=== PATIENT | female | born 1990 | race Caucasian/White ===

== ENCOUNTER 2021-04-23 14:25 | Emergency (ER) | payer SELFPAY ==
[2021-04-23 14:41] VITALS: BP 144/77; PULSE 87; RESP 16; TEMP 36.8; O2SAT 98
--- NOTE | 2021-04-23 14:55 | ED.WOUNDLAC ---
HPI - Wound/Laceration General Chief Complaint: Wound/Laceration Stated Complaint: Laceration to Right Wrist, Fall Time Seen by Provider: 04/23/21 14:43 Source: patient and family Mode of arrival: Ambulatory History of Present Illness HPI narrative: Patient complains of laceration to the right wrist. Patient was getting out of car and she was holding a glass jar. Tripped and fell and a jar broke. Cutting her volar surface of her right wrist. No numbness and tingling to the hand or fingers. Still has range of motion intact at the wrist and fingers. Tetanus up-to-date. Denies any other injuries. Related Data Home Medications Medication Instructions Recorded Confirmed levothyroxine 100 mcg tablet 100 mcg PO DAILY 04/23/21 04/23/21 Previous Rx's Medication Instructions Recorded cephalexin 500 mg capsule 500 mg PO QID #16 cap 04/23/21 Allergies Allergy/AdvReac Type Severity Reaction Status Date / Time doxycycline Allergy Severe Anaphylaxis Verified 04/23/21 14:44 Review of Systems Review of Systems Narrative: GENERAL: Denies chills, fatigue, malaise, fever, sweats. HEENT: Denies sinus pain, ear pain, sore throat RESPIRATORY: Denies dyspnea, cough CARDIOVASCULAR: Denies chest pain, palpitations GASTROINTESTINAL: Denies nausea, vomiting, abdominal pain : Denies dysuria, frequency, hematuria MUSCULOSKELETAL: denies muscle or bony pain SKIN: Denies rash, skin lesions, positive laceration/injury NEUROLOGIC: Denies weakness, numbness ROS Unobtainable: All systems reviewed & are unremarkable except as noted in HPI and below Patient History Social History Smoking Status: Never smoker Smoking Status: Never smoker alcohol intake frequency: a few times a month Substance Use Type: does not use Exam Narrative Exam Narrative: GENERAL: in no distress, not toxic not dyspneic HEAD: Normocephalic. EYES: Pupils equal round No scleral icterus. EXTREMITIES: No gross deformities. Examination right hand and wrist. 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 Able to bring thumb across and touch the palm. Hand is warm soft and pink. Able to actively flex and extend at the wrist but has pain. Two small abrasions to the fingers. There are 2 linear lacerations to the volar wrist. On the ulnar surface 2 cm superficial base visualize no foreign body no tendon or bony injury seen. On the radial side there is a 3 cm linear laceration as well based visualize no bony injury or tendon injury seen. No foreign body seen. Bloodless field to visualize these lacerations. NEURO: AOx4. SKIN: Warm and dry PSYCH: Not anxious, is cooperative Initial Vital Signs Initial Vital Signs: Vital Signs Temperature 98.3 F 04/23/21 14:41 Pulse Rate 87 04/23/21 14:41 Respiratory Rate 16 04/23/21 14:41 Blood Pressure 144/77 H 04/23/21 14:41 Pulse Oximetry 98 04/23/21 14:41 Procedures Laceration Repair Laceration 1: Time of procedure: 15:30 Site: other (Wrist) Side (If applicable): right Size (cm): 2 Description: linear Depth: simple, single layer Local Anesthetic: lidocaine 1% and with epi Amount of anesthesia used (mL): 2 Pre-repair: wound explored (With Hibiclens) and irrigated extensively Skin layer closed with: nylon Size (cm): 4-0 Number of sutures: 4 Technique: simple, interrupted Laceration 2: Time of procedure: 15:31 Site: other (Wrist) Side (If applicable): right Size (cm): 3 Description: linear Depth: simple, single layer Local Anesthetic: lidocaine 1% and with epi Amount of anesthesia used (mL): 2 Pre-repair: wound explored and irrigated extensively (With Hibiclens) Skin layer closed with: nylon Size (cm): 4-0 Number of sutures: 6 Technique: simple, interrupted Course Course Course Narrative: No new issues during her stay. Orders Ordered: Discontinued Medications Bacitracin (Bacitracin Oint 0.9 Gm Pckt) 1 applic TOP NOW ONE Stop: 04/23/21 15:24 Last Admin: 04/23/21 15:43 Dose: 1 applic Documented by: JESUS MANUEL Cephalexin HCl (Cephalexin 250 Mg Capsule) 500 mg PO NOW ONE Stop: 04/23/21 15:07 Last Admin: 04/23/21 15:12 Dose: 500 mg Documented by: JESUS MANUEL Lidocaine/Epinephrine (Lidocaine 1% W/Epi) 4 ml INJ NOW ONE Stop: 04/23/21 14:52 Last Admin: 04/23/21 15:06 Dose: 4 ml Documented by: JESUS MANUEL Reevaluation(s) Reevaluation #1: Patient tolerated procedure very well. Time: 15:29 Vital Signs Vital signs: Vital Signs - 8 hr 04/23/21 14:41 Temperature 98.3 F Pulse Rate 87 Respiratory Rate 16 Blood Pressure 144/77 H Pulse Oximetry 98 MDM - Wound/Laceration Differential Diagnosis Differential diagnosis: Likely laceration MDM Narrative Medical decision making narrative: Appropriate for discharge home. No imaging indicated. base of wound visualized. No foreign body seen. Neurovascularly intact. Return precautions reviewed patient. Wound care and dressing change reviewed with patient. Not toxic at discharge. Discharge Plan Departure Patient Disposition: Home Clinical Impression: Laceration Instructions: DI for Laceration Repair Activity Restrictions/Additional Instructions: Change dressing daily with warm soap and water and then topical antibiotic. See family doctor or return here or go to urgent care for removal of 10 total stitches and 10 days. Return if worsening questions or concerns Prescriptions: New cephalexin 500 mg capsule 500 mg PO QID Qty: 16 RF: 0 No Action levothyroxine 100 mcg Tablet 100 mcg PO DAILY RF: 0
[2021-04-23] MEDS: LIDOCAINE 1% W/EPI 4 ML INJ (15:06)
[2021-04-23] MEDS: cephALEXin 250 MG CAPSULE 500 MG PO (15:12)
[2021-04-23] MEDS: BACITRACIN OINT 0.9 GM PCKT 1 APPLIC TOP (15:43)
[2021-04-23 15:59] VITALS: BP 129/76; PULSE 77; RESP 16; O2SAT 100
== END 2021-04-23 16:00 | disposition home or self-care (01) ==
PROVIDERS: Emergency Provider Emergency Medicine
DX: S61.511A Laceration without foreign body of right wrist, initial encounter (principal); W01.110A Fall on same level from slipping, tripping and stumbling with subsequent striking against sharp glass, initial encounter
CPT/HCPCS: 12002; 99283; 99284